=== PATIENT | female | born 1995 | race Caucasian/White ===

== ENCOUNTER 2017-02-19 02:25 | Emergency (ER) | payer OTHER ==
[~2017-02-19] VITALS: Ht 162.6 cm; Wt 70.9 kg
[2017-02-19 02:36] VITALS: TEMP 36.7; Ht 162.6 cm; Wt 70.9 kg
[2017-02-19 02:55] LABS: URINE APPEARANCE CLEAR (CLEAR); URINE BILIRUBIN NEG (NEG); URINE COLOR YELLOW; URINE NITRITE NEG (NEG); UROBILINOGEN NEG (NEG)
[2017-02-19] MEDS ORDERED: PHENAZOPYRIDINE HCL 200 MG TAB PO STA (02:57)
[2017-02-19 03:00] LABS: MANUAL MICROSCOPIC REQUIRED? NO; REVIEW REQ? YES
[2017-02-19] MEDS ORDERED: SULFAMETHOXAZOLE/TRIMETHOPRIM DS 800/160MG TAB PO ONE (03:00)
--- NOTE | 2017-02-19 03:00 | EMERGENCY ROOM VISIT NOTE ---
History Report prepared by Scribe: Jacquelyn Reeves Under the Supervision of: Dr. Kwasi Crabtree D.O. First contact with patient: 02:39 Chief Complaint: URINARY SYMPTOMS Stated Complaint: SEVERE UTI,HEAVY BLEEDING,HEAVY CRAMPS Nursing Triage Summary: pt c/o uti, discomfort in abd, heavy bleeding, burning, frequency and urgency History of Present Illness The patient is a 21 year old female who presents to the Emergency Room with complaints of persistent urinary symptoms for the past few days. She complains of abdominal discomfort, hematuria, dysuria and increased urinary frequency. She has been trying to drink a lot of water with minimal relief. She states she has a history of recurrent UTI's and has experienced kidney infections in the past. She denies any fevers or back pain. Source of History: patient Onset: past few days [employer] Position: other (global) Timing: other (persistent) Modifying Factors (Relieving): drinking (water) Associated Symptoms: No fevers, No back pain Review of Systems See HPI for pertinent positives and negatives. A total of ten systems were reviewed and were otherwise negative. Past Medical & Surgical Medical Problems: (1) Kidney infection (2) UTI (urinary tract infection) Social History Smoking Status: Never Smoker Allergies Coded Allergies: No Known Allergies (Unverified , 02/19/17) Physical Exam Vital Signs Date Time Temp Pulse Resp B/P (MAP) Pulse Ox O2 Delivery O2 Flow Rate FiO2 02/19/17 03:03 84 18 110/58 100 Room Air 02/19/17 02:36 36.7 91 18 143/89 100 Room Air Physical Exam GENERAL: Awake, alert, well-appearing, in no distress HENT: Normocephalic, atraumatic. Oropharynx unremarkable. EYES: Normal conjunctiva. Sclera non-icteric. NECK: Supple. No nuchal rigidity. FROM. No JVD. RESPIRATORY: Clear to auscultation. CARDIAC: Regular rate, normal rhythm. Extremities warm and well perfused. Pulses equal. ABDOMEN: Soft, non-distended. No tenderness to palpation. No rebound or guarding. No masses. RECTAL: Deferred. MUSCULOSKELETAL: Chest examination reveals no tenderness. The back is symmetrical on inspection without obvious abnormality. There is no CVA tenderness to palpation. No joint edema. LOWER EXTREMITIES: Calves are equal size bilaterally and non-tender. No edema. No discoloration. NEURO: Normal sensorium. No sensory or motor deficits noted. SKIN: No rash or jaundice noted. Medical Decision & Procedures Laboratory Results Test 02/19/17 02:42 Urine Color YELLOW Urine Appearance CLEAR (CLEAR) Urine pH 6.0 (4.5-7.5) Urine Specific [place] 1.010 (1.000-1.030) Urine Protein NEG (NEG) Urine Glucose (UA) NEG (NEG) Urine Ketones NEG (NEG) Urine Occult Blood NEG (NEG) Urine Nitrite NEG (NEG) Urine Bilirubin NEG (NEG) Urine Urobilinogen NEG (NEG) Urine Leukocyte Esterase SMALL (NEG) Urine WBC (Auto) 10-30 /hpf (0-5) Urine RBC (Auto) 0-4 /hpf (0-4) Urine Hyaline Casts (Auto) 0 /lpf (0-5) Urine Epithelial Cells (Auto) 0-5 /lpf (0-5) Urine Bacteria (Auto) NEG (NEG) Urine Test NEG (NEG) Laboratory results reviewed by me Medications Administered Medications (Trade) Dose Ordered Sig/Lisa Route Start Time Stop Time Status Last Admin Dose Admin Trimethoprim/ Sulfamethoxazole (Septra Ds 800/ 160MG Tab) 1 tab NOW ONCE PO 02/19/17 03:00 02/19/17 03:01 DC 02/19/17 03:02 1 TAB Phenazopyridine HCl (Pyridium Tab) 200 mg NOW STAT PO 02/19/17 02:57 02/19/17 02:58 DC 02/19/17 03:02 200 MG ED Course 0254: The patient was evaluated in room B9. A complete history and physical exam was performed. Medical Decision The differential diagnoses include UTI, cystitis and pyelonephritis. Patient presents with classic symptoms of cystitis. Patient was given Bactrim and Pyridium in the emergency department and will be provided with a prescription Impression Primary Impression: Cystitis Scribe Attestation The scribe's documentation has been prepared under my direction and personally reviewed by me in its entirety. I confirm that the note above accurately reflects all work, treatment, procedures, and medical decision making performed by me. Departure Information Dispostion Home / Self-Care Prescriptions Phenazopyridine HCl (Pyridium) 200 Mg Tab 200 MG PO TID Y for Frequency/Burning w/Urination, #6 TAB Prov: Kwasi Crabtree, DO 02/19/17 Sulfa/Trimethoprim (Bactrim Ds 800MG/160MG) Tab 1 TAB PO BID, #14 TAB Prov: Kwasi Crabtree, DO 02/19/17 Referrals No Doctor, Assigned (PCP) Patient Instructions ED UTI Cystitis Female, My [facility]
[2017-02-19 03:03] VITALS: BP 110/58; PULSE 84; O2SAT 100
[2017-02-19 03:09] LABS: URINE EPITHELIAL CELL AUTO 0-5 /lpf (0-5)
[2017-02-19] MEDS ORDERED: PHEN-876 PO (03:15)
[2017-02-19] MEDS ORDERED: SULF800T23 PO (03:15)
== END 2017-02-19 03:22 | disposition home or self-care (01) ==
LOC: C.EDB 02:27
DX: N30.91 Cystitis, unspecified with hematuria (principal); R30.0 Dysuria; R35.0 Frequency of micturition; Z87.440 Personal history of urinary (tract) infections; Z87.448 Personal history of other diseases of urinary system